=== PATIENT | male | born 1975 | race African-American/Black ===

== ENCOUNTER 2021-05-06 16:59 | Emergency (ER) | payer SELFPAY ==
[~2021-05-06] VITALS: Ht 176.5 cm; Wt 115.2 kg
[2021-05-06 17:12] VITALS: BP 158/96
[2021-05-06] MEDS ORDERED: KETOROLAC 30 MG/ML VIAL IM ONE (18:15)
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
--- NOTE | 2021-05-06 18:52 | NUR ---
pt returned from xray
[2021-05-06] MEDS ORDERED: NAPR-54 PO (19:09)
[2021-05-06] MEDS ORDERED: CYCL-711 PO (19:09)
[2021-05-06] MEDS ORDERED: LID5T TP (19:09)
--- NOTE | 2021-05-06 19:23 | NUR ---
Patient discharged with v/s stable. Written and verbal after care instructions ABOUT [employer] given and explained. Patient alert, oriented and verbalized understanding of instructions. Ambulatory with steady gait. All questions addressed prior to discharge. ID band removed. Patient advised to follow up with PMD. Rx of FLEXERIL, LIDOCAINE PATCH, NAPROXEN given. Patient educated on indication of medication including possible reaction and side effects. Opportunity to ask questions provided and answered.
== END 2021-05-06 19:23 | disposition home or self-care (01) ==
LOC: MED 16:59
DX: M54.9 Dorsalgia, unspecified (principal); M54.2 Cervicalgia; V98.8XXA Other specified transport accidents, initial encounter; Y93.89 Activity, other specified; Y92.89 Other specified places as the place of occurrence of the external cause; Y99.8 Other external cause status
CPT/HCPCS: 72050; 72072; 72110; 96372; 99284; J1885